=== PATIENT | female | born 1965 | race Caucasian/White ===

== ENCOUNTER 2019-02-15 07:29 | Emergency (ER) | payer BC ==
[2019-02-15] MEDS ORDERED: HYDROCODONE/APAP 10/325 TAB ONE (09:01)
[2019-02-15] MEDS ORDERED: ONDANSETRON 4 MG (ODT) TAB ONE (09:01)
--- NOTE | 2019-02-15 09:01 | ER ---
Nurse's Notes [facility] Name: Luly Rodríguez Age: 53 yrs Sex: Female : 1965 Arrival Date: 02/15/2019 Time: 07:32 Bed 13 Private MD: Altaf Ruiz C Diagnosis: Unspecified sprain of right foot Presentation: 02/15 07:33 Presenting complaint: Patient states: "I tripped and fell yesterday at the graduation aa5 in the parking lot". Pt states "I kind of twisted and landed on my bottom and hurt my right ankle". Denies LOC, denies head injury, pt c/o right ankle pain. 07:33 Transition of care: patient was not received from another setting of care. Onset of aa5 symptoms was February 14, 2019. Risk Assessment: Do you want to hurt yourself or someone else? Patient reports no desire to harm self or others. Initial Sepsis Screen: Does the patient meet any 2 criteria? No. Patient's initial sepsis screen is negative. Does the patient have a suspected source of infection? No. Patient's initial sepsis screen is negative. Care prior to arrival: None. 07:33 Acuity: ARIANA 4 aa5 07:33 Method Of Arrival: Wheelchair aa5 Historical: - Allergies: 07:33 Sulfa (Sulfonamide Antibiotics); aa5 - PMHx: 07:33 Hypertension; Thyroid problem; aa5 - PSHx: 07:33 Appendectomy; aa5 - Immunization history:: Adult Immunizations up to date. - Social history:: Smoking status: Patient uses tobacco products, smokes one pack cigarettes per day. - Ebola Screening: : No symptoms or risks identified at this time. - Family history:: not pertinent. Screenin:41 Abuse screen: Denies threats or abuse. Nutritional screening: No deficits noted. aa5 Tuberculosis screening: No symptoms or risk factors identified. Fall Risk None identified. Assessment: 07:35 General: Appears comfortable, Behavior is calm, cooperative. Pain: Complains of pain in aa5 right ankle Pain does not radiate. Pain currently is 6 out of 10 on a pain scale. Quality of pain is described as aching, throbbing, Pain began "last night" Is continuous. Neuro: Level of Consciousness is awake, alert, obeys commands, Oriented to person, place, time, situation. Cardiovascular: Patient's skin is warm and dry. Respiratory: Airway is patent Respiratory effort is even, unlabored, Respiratory pattern is regular, symmetrical. GI: No signs and/or symptoms were reported involving the gastrointestinal system. : No signs and/or symptoms were reported regarding the genitourinary system. EENT: No signs and/or symptoms were reported regarding the EENT system. Derm: Skin is pink, warm \\T\\ dry. Musculoskeletal: Reports pain in right ankle. 09:00 Reassessment: Patient appears in no apparent distress at this time. Patient and/or em family updated on plan of care and expected duration. Pain level reassessed. Patient is alert, oriented x 3, equal unlabored respirations, skin warm/dry/pink. 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 em Vital Signs: 07:34 BP 127 / 86; Pulse 94; Resp 16 S; Temp 97.9(O); Pulse Ox 98% on R/A; Weight 63.5 kg aa5 (R); Height 5 ft. 7 in. (170.18 cm) (R); Pain 6/10; 09:00 BP 114 / 80; Pulse 89; Resp 18; Pulse Ox 99% on R/A; em 07:34 Body Mass Index 21.93 (63.50 kg, 170.18 cm) aa ED Course: 07:32 Patient arrived in ED. rg4 07:33 Altaf Ruiz MD is Private Physician. rg4 07:33 Arm band placed on Patient placed in an exam room, on a stretcher. aa5 07:33 Patient has correct armband on for positive identification. Bed in low position. Call aa5 light in reach. Side rails up X 1. Adult w/ patient. 07:37 Ngozi Barr, SRINI is Primary Nurse. aa5 07:39 Triage completed. aa5 07:50 Brain Jacobo MD is Attending Physician. avinash 08:02 Ankle Right 3 View XRAY In Process Unspecified. EDMS 08:57 X-ray completed. Portable x-ray completed in exam room. Patient tolerated procedure la2 well. 08:59 Foot Right 3 View XRAY In Process Unspecified. EDMS 09:00 Altaf Ruiz MD is Referral Physician. avinash 09:00 Bradford Jaimes MD is Referral Physician. avinash 09:08 walking boot placed on right foot, ice pack given. em 09:19 No provider procedures requiring assistance completed. Patient did not have IV access em during this emergency room visit. Administered Medications: 08:48 Drug: [place] 10 mg-325 mg 1 tabs Route: PO; em 09:20 Follow up: Response: No adverse reaction em 08:48 Drug: Zofran 4 mg Route: PO; em 09:20 Follow up: Response: No adverse reaction em Outcome: 09:00 Discharge ordered by MD. avinash 09:19 Discharged to home via wheelchair, with family. em 09:19 Condition: good 09:19 Discharge instructions given to patient, family, Instructed on discharge instructions, follow up and referral plans. medication usage, Demonstrated understanding of instructions, follow-up care, medications, Prescriptions given X 2. 09:45 Patient left the ED. em Signatures: Dispatcher [employer] EDBrain Reardon MD MD cha Munoz, Edgar, DOCK PUMPER DOCK PUMPER Ngozi Tuttle, SRINI RN aa5 Suzi Mccloud rg4 Giselle Livingston2
--- NOTE | 2019-02-15 09:01 | EDPHYS ---
Physician Documentation [facility] Name: Luly Rodríguez Age: 53 yrs Sex: Female : 1965 Arrival Date: 02/15/2019 Time: 07:32 Bed 13 Private MD: Atlaf Ruiz C ED Physician Brain Jacobo HPI: 02/15 08:36 This 53 yrs old Female presents to ER via Wheelchair with complaints of Fall avinash Injury. 08:36 Details of fall: The patient fell from an upright position, while standing. Onset: The avinash symptoms/episode began/occurred last night. Associated injuries: The patient sustained dorsum of right foot, decreased range of motion, painful injury, swelling. Historical: - Allergies: 07:33 Sulfa (Sulfonamide Antibiotics); aa5 - PMHx: 07:33 Hypertension; Thyroid problem; aa5 - PSHx: 07:33 Appendectomy; aa5 - Immunization history:: Adult Immunizations up to date. - Social history:: Smoking status: Patient uses tobacco products, smokes one pack cigarettes per day. - Ebola Screening: : No symptoms or risks identified at this time. - Family history:: not pertinent. ROS: 08:36 Constitutional: Negative for fever, chills, and weight loss, Eyes: Negative for injury, avinash pain, redness, and discharge, ENT: Negative for injury, pain, and discharge, Neck: Negative for injury, pain, and swelling, Cardiovascular: Negative for chest pain, palpitations, and edema, Respiratory: Negative for shortness of breath, cough, wheezing, and pleuritic chest pain, Abdomen/GI: Negative for abdominal pain, nausea, vomiting, diarrhea, and constipation, Back: Negative for injury and pain, : Negative for injury, bleeding, discharge, and swelling, Skin: Negative for injury, rash, and discoloration, Neuro: Negative for headache, weakness, numbness, tingling, and seizure, Psych: Negative for depression, anxiety, suicide ideation, homicidal ideation, and hallucinations, Allergy/Immunology: Negative for hives, rash, and allergies, Endocrine: Negative for neck swelling, polydipsia, polyuria, polyphagia, and marked weight changes, Hematologic/Lymphatic: Negative for swollen nodes, abnormal bleeding, and unusual bruising. 08:36 MS/extremity: Positive for decreased range of motion, pain, swelling, tenderness, of the dorsum of right foot. Exam: 08:36 Constitutional: This is a well developed, well nourished patient who is awake, alert, avinash and in no acute distress. Head/Face: Normocephalic, atraumatic. Eyes: Pupils equal round and reactive to light, extra-ocular motions intact. Lids and lashes normal. Conjunctiva and sclera are non-icteric and not injected. Cornea within normal limits. Periorbital areas with no swelling, redness, or edema. ENT: Nares patent. No nasal discharge, no septal abnormalities noted. Tympanic membranes are normal and external auditory canals are clear. Oropharynx with no redness, swelling, or masses, exudates, or evidence of obstruction, uvula midline. Mucous membranes moist. Neck: Trachea midline, no thyromegaly or masses palpated, and no cervical lymphadenopathy. Supple, full range of motion without nuchal rigidity, or vertebral point tenderness. No Meningismus. Chest/axilla: Normal chest wall appearance and motion. Nontender with no deformity. No lesions are appreciated. Cardiovascular: Regular rate and rhythm with a normal S1 and S2. No gallops, murmurs, or rubs. Normal PMI, no JVD. No pulse deficits. Respiratory: Lungs have equal breath sounds bilaterally, clear to auscultation and percussion. No rales, rhonchi or wheezes noted. No increased work of breathing, no retractions or nasal flaring. Abdomen/GI: Soft, non-tender, with normal bowel sounds. No distension or tympany. No guarding or rebound. No evidence of tenderness throughout. Back: No spinal tenderness. No costovertebral tenderness. Full range of motion. Skin: Warm, dry with normal turgor. Normal color with no rashes, no lesions, and no evidence of cellulitis. Neuro: Awake and alert, GCS 15, oriented to person, place, time, and situation. Cranial nerves II-XII grossly intact. Motor strength 5/5 in all extremities. Sensory grossly intact. Cerebellar exam normal. Normal gait. Psych: Awake, alert, with orientation to person, place and time. Behavior, mood, and affect are within normal limits. 08:36 Musculoskeletal/extremity: Extremities: decreased ROM, pain, ROM: full active range of motion, full passive range of motion, Circulation is intact in all extremities. Sensation intact. Compartment Syndrome exam of affected extremity: is normal. DVT Exam: No signs of deep vein thrombosis. negative Homans' sign noted on exam, no appreciated bluish discoloration, no erythema, no increased warmth, pain, swelling, tenderness. Vital Signs: 07:34 BP 127 / 86; Pulse 94; Resp 16 S; Temp 97.9(O); Pulse Ox 98% on R/A; Weight 63.5 kg aa5 (R); Height 5 ft. 7 in. (170.18 cm) (R); Pain 6/10; 09:00 BP 114 / 80; Pulse 89; Resp 18; Pulse Ox 99% on R/A; em 07:34 Body Mass Index 21.93 (63.50 kg, 170.18 cm) [facility] MDM: 07:50 Patient medically screened. [facility] 08:40 Data reviewed: vital signs, nurses notes, radiologic studies, plain films. [facility] 02/15 07:45 Order name: Ankle Right 3 View XRAY [facility] 02/15 08:37 Order name: Foot Right 3 View XRAY [facility] 02/15 08:37 Order name: Ice pack; Complete Time: 08:50 [facility] 02/15 08:37 Order name: Walking boot; Complete Time: 08:50 [facility] Administered Medications: 08:48 Drug: [place] 10 mg-325 mg 1 tabs Route: PO; em 09:20 Follow up: Response: No adverse reaction em 08:48 Drug: Zofran 4 mg Route: PO; em 09:20 Follow up: Response: No adverse reaction em Disposition: 02/15/19 09:00 Discharged to Home. Impression: Unspecified sprain of right foot. - Condition is Stable. - Discharge Instructions: Foot Contusion, Foot Sprain, Foot Contusion, [id number], Foot Pain. - Prescriptions for Tylenol- Codeine #3 300-30 mg Oral Tablet - take 2 tablets by ORAL route every 6 hours As needed; 26 tablet. Motrin IB 200 mg Oral Tablet - take 2 tablet by ORAL route every 6 hours As needed as needed with food; 20 tablet. - Medication Reconciliation Form, Thank You Letter, Antibiotic Education, Prescription Opioid Use form. - Follow up: A Ruiz; When: 2 - 3 days; Reason: Recheck today's complaints, Continuance of care, Re-evaluation by your physician. Follow up: Bradford Jaimes; When: 2 - 3 days; Reason: Recheck today's complaints, Re-evaluation by your physician. - Problem is new. - Symptoms have improved. Signatures: Dispatcher [employer] Brain Bello MD MD cha Munoz, Himanshu, ROSE GROWER ROSE GROWER Ngozi Tuttle, RN RN aa5 Corrections: (The following items were deleted from the chart) 09:45 09:00 02/15/2019 09:00 Discharged to Home. Impression: Unspecified sprain of right em foot. Condition is Stable. Discharge Instructions: Foot Contusion, Foot Sprain, Foot Contusion, [id number]-[id number], Foot Pain. Prescriptions for Tylenol-Codeine #3 300-30 mg Oral Tablet - take 2 tablets by ORAL route every 6 hours As needed; 26 tablet, Motrin IB 200 mg Oral Tablet - take 2 tablet by ORAL route every 6 hours As needed as needed with food; 20 tablet. and Forms are Medication Reconciliation Form, Thank You Letter, Antibiotic Education, Prescription Opioid Use. Follow up: Altaf Ruiz; When: 2 - 3 days; Reason: Recheck today's complaints, Continuance of care, Re-evaluation by your physician. Follow up: Bradford Jaimes; When: 2 - 3 days; Reason: Recheck today's complaints, Re-evaluation by your physician. Problem is new. Symptoms have improved. avinash
--- NOTE | 2019-02-15 11:19 | RAD REPORT ---
EXAM DESCRIPTION: RAD - Ankle Right 3 View - 02/15/2019 8:01 am CLINICAL HISTORY: PAIN COMPARISON: None FINDINGS: Right ankle and right foot- multiple projections are submitted There is a subtle area of lucency seen in the calcaneus in the region of the middle subtalar joint. F racture is possible in this region, although this is a somewhat unusual location for a traumatic frac ture. Followup MR imaging of the ankle would be recommended for further assessment.
--- NOTE | 2019-02-18 11:53 | RAD REPORT ---
EXAM DESCRIPTION: RAD - Foot Right 3 View - 02/15/2019 8:58 am CLINICAL HISTORY: PAIN COMPARISON: None FINDINGS: Right ankle and right foot- multiple projections are submitted There is a subtle area of lucency seen in the calcaneus in the region of the middle subtalar joint. F racture is possible in this region, although this is a somewhat unusual location for a traumatic frac ture. Followup MR imaging of the ankle would be recommended for further assessment.
== END 2019-02-15 09:45 | disposition home or self-care (01) ==
LOC: ER 07:29
DX: S93.601A Unspecified sprain of right foot, initial encounter (principal); W18.30XA Fall on same level, unspecified, initial encounter; F17.210 Nicotine dependence, cigarettes, uncomplicated; I10 Essential (primary) hypertension; Z88.2 Allergy status to sulfonamides
CPT/HCPCS: 99284

== ENCOUNTER 2019-10-22 15:53 | Observation (INO) | payer BC ==
[2019-10-22 16:41] VITALS: BMI 22.2
[2019-10-22 17:19] VITALS: O2SAT 99
[2019-10-22] MEDS ORDERED: ASPIRIN EC 81 MG TAB PO ONE (17:25)
[2019-10-22] MEDS ORDERED: ENOXAPARIN 40 MG/0.4 ML SQ ONE (17:25)
[2019-10-22 17:34] LABS: Absolute Lymphocytes (CBC) 1.6 K/uL (0.7-4.9); Basophils % 0.6 % (0-1.3); Hematocrit 43.4 % (36.0-45.0); MPV 8.7 fL (7.6-11.3); RBC Red Blood Cell Count 4.29 M/uL (3.86-4.86)
--- NOTE | 2019-10-22 17:56 | RAD REPORT ---
EXAM DESCRIPTION: RAD - Chest Pa And Lat (2 Views) - 10/22/2019 5:42 pm CLINICAL HISTORY: chest pain Chest pain. COMPARISON: No comparisons FINDINGS: The lungs are clear. The heart is normal in size. No displaced fractures. IMPRESSION: No acute or concerning finding suspected.
[2019-10-22 17:57] LABS: ALT/SGPT 44 U/L (12-78); AST/SGOT 37 U/L (15-37); Albumin 3.6 g/dL (3.4-5.0); Alkaline Phosphatase 48 U/L (45-117); BUN Blood Urea Nitrogen 7 mg/dL (7-18); Bicarbonate 25 mmol/L (21-32); CKMB Creatine Kinase MB < 1.0 ng/mL (0.3-3.6); Creatine Phosphokinase 51 U/L (26-192); Glucose Level 113 mg/dL (74-106); Potassium 3.5 mmol/L (3.5-5.1); Protein, Total 6.7 g/dL (6.4-8.2); Sodium Level 138 mmol/L (136-145); Troponin I < 0.02 ng/mL (0.0-0.045)
[2019-10-22] MEDS ORDERED: AMLODIPINE 5 MG PO SCH (21:00)
[2019-10-22] MEDS ORDERED: POTASSIUM CL SA 10 MEQ TAB PO ONE (21:00)
[2019-10-22] MEDS ORDERED: CIPROFLOXACIN HCL 500 MG PO SCH (21:00)
[2019-10-23 05:26] LABS: Magnesium 1.8 mg/dL (1.8-2.4); Potassium 4.1 mmol/L (3.5-5.1)
[2019-10-23] MEDS ORDERED: LEVOTHYROXINE SODIUM 25 MCG PO SCH (06:00)
[2019-10-23] MEDS ORDERED: MAGNESIUM SULFATE 1 gm IVPB 1 GM/100 ML BAG IV ONE ×2 (06:11→11:00)
[2019-10-23] MEDS ORDERED: REGADENOSON 0.4 MG/5 ML SYR IV ONE (08:11)
[2019-10-23] MEDS ORDERED: BENAZEPRIL HCL 10 MG PO SCH (09:00)
--- NOTE | 2019-10-23 10:02 | RAD REPORT ---
EXAM DESCRIPTION: CT - Chest For Pe Angio - 10/23/2019 12:26 am CLINICAL HISTORY: 54-year-old female rule out pulmonary embolism. The COMPARISON: None. TECHNIQUE: CT angiography of the pulmonary arteries was performed following intravenous administrati on of contrast. Coronal and bilateral oblique maximum intensity projections (MIPS) were created. This exam was performed according to our departmental dose optimization program which includes use of aut omated exposure control, adjustment of the mA and/or kV according to patient size and/or use of itera tive reconstruction technique. FINDINGS: Chest: Evaluation through the lungs reveals no focal opacity, pleural effusion or pneumothorax. There is min imal dependent basilar atelectasis and scarring. The tracheobronchial airways are patent. No signific ant mediastinal or axillary lymphadenopathy by CT measurement criteria. Limited evaluation of the upper abdomen shows no acute intra-abdominal abnormalities. The osseous structures are within normal limits. CT angiography: Diagnostic CT angiography of the pulmonary arteries without intraluminal filling defe ct noted to suggest pulmonary arterial embolus. IMPRESSION: 1. Diagnostic pulmonary angiography without findings to suggest pulmonary arterial embol us. 2. The lungs are clear without focal opacity, pleural effusion or pneumothorax. 3. No specific findings are noted to suggest etiology of the patient's chest pain. Electronically signed by: Morelia Valles MD 10/23/2019 12:37 AM EXECUTIVE VICE PRESIDENT AND CHIEF OPERATING OFFICER Due to temporary technical issues with the PACS/Fluency reporting system, reports are being signed by the in house radiologist as a courtesy to ensure prompt reporting. The interpreting radiologist is f ully responsible for the content of the report.
--- NOTE | 2019-10-23 10:29 | RAD REPORT ---
EXAM DESCRIPTION: NM - Rest Stress Cardiac Imaging - 10/23/2019 10:05 am CLINICAL HISTORY: Chest pain COMPARISON: None. TECHNIQUE: The patient was administered 10.5 mCi of Tc 99m Sestamibi prior to resting SPECT imaging of the heart. The patient was then administered 31.3 mCi of Tc 99m Sestamibi following exercise or ph armacologic stress. Multiplanar SPECT images were reviewed. FINDINGS: The end diastolic volume is 61 ml, the end systolic volume is 14 ml, and the ejection frac tion is 77 %. Physiologic distribution of the radiopharmaceutical through the myocardium is noted. No stress induce d ischemic defect is seen to suggest stress induced ischemia. No fixed defect is seen to suggest hibe rnating myocardium or scarred myocardium. IMPRESSION: No stress induced ischemia or other suspicious findings. Ventricular volumes and ejection fraction are well within normal limits.
[2019-10-23 12:15] VITALS: BP 120/79; TEMP 97.2
--- NOTE | 2019-10-23 13:50 | ECHO ---
HEIGHT: 5 ft 7 in WEIGHT: 142 lb 0 oz DATE OF STUDY: 10/23/[address]: Ronny Ruiz MD 2-DIMENSIONAL: YES M.MODE: YES DOPPLER: YES COLOR FLOW: YES TDS: NO PORTABLE: NO DEFINITY: NO BUBBLE STUDY: NO DIAGNOSIS: CONGESTIVE HEART FAILURE CARDIAC HISTORY: CATHERIZATION: NO SURGERY: NO PROSTHETIC VALVE: NO PACEMAKER: NO MEASUREMENTS (cm) DIASTOLIC (NORMALS) SYSTOLIC (NORMALS) IVSd 0.8 (0.6-1.2) LA Diam 2.3 (1.9-4.0) LVEF 66% LVIDd 3.9 (3.5-5.7) LVIDs 2.5 (2.0-3.5) %FS 36% LVPWd 0.9 (0.6-1.2) Ao Diam 2.5 (2.0-3.7) 2 DIMENSIONAL ASSESSMENT: RIGHT ATRIUM: NORMAL LEFT ATRIUM: NORMAL RIGHT VENTRICLE: NORMAL LEFT VENTRICLE: NORMAL TRICUSPID VALVE: NORMAL MITRAL VALVE: NORMAL PULMONIC VALVE: NORMAL AORTIC VALVE: NORMAL PERICARDIAL EFFUSION: NONE AORTIC ROOT: NORMAL LEFT VENTRICULAR WALL MOTION: NORMAL. DOPPLER/COLOR FLOW: NORMAL. COMMENTS: NORMAL 2D ECHO WITH DOPPLER. NO WALL MOTION ABNORMALITY. NO EFFUSION. TECHNOLOGIST: VICKY GIRALDO
--- NOTE | 2019-10-23 13:59 | TREADPHA ---
DX: CHEST PAIN Date of Study: 10/23/2019 Ht: 5 7 Wt: 142 lb 0 oz Consulting Physician: LYNN MEDICATIONS: AMLODOPINE, THYROID MEDICATION. HISTORY: 54 YEAR OLD FEMALE WITH COMPLAINTS OF LEFT SHOULDER, LEFT CHEST WALL PAIN. DENIED PAIN AT TIME OF TEST. HISTORY OF HYPERTENSION, HYPOTHROIDISM PHYSICIAL EXAMINATION: RESTING B.P.: 141/85 RESTING H.R.: 72 RESTING EKG: SINUS RHYTHM, RIGHTWARD AXIS PROTOCOL: LEXISCAN EXERCISE TIME: 3:30 B.P. AT PEAK STRESS: 122/86 IMPRESSION: LEXISCAN STRESS TEST PERFORMED. CARDIOLITE INJECTED PER PROTOCOL. NO SUPRA VENTRICUAR TACHYCARDIA, NO VENTRICULAR TACHYCARDIA, NO ARRHYTHMIA NOTED. DENIED CHEST PAIN. TOLERATED WELL. PLEASE SEE NUCLEAR MEDICINE REPORT.
--- NOTE | 2019-10-24 05:48 | DS ---
Date of Discharge: 10/23/2019 Disposition: Discharged to go home. Physical Examination: HEENT: Unremarkable. Lungs: Clear to auscultation. Heart: Sounds normal. Abdomen: Soft. Bowel sounds normal. No guarding, rigidity, tenderness, or distention. Extremities: No leg edema. Hospital Course: This is a 54-year-old pleasant female patient, admitted to the hospital with compla ints of chest pain. Please see dictated H and P for more information. After patient was evaluated a t office, she was admitted to the hospital. Due to work schedule, she was not able to get admitted t he day I saw her at the office, but next day she came back and after I talked to her at the office, rosey foster decided to go ahead and admit her to hospital for further evaluation and management of this problem . Patient reported no fall, no injury, no rash in the area of her chest pain. After she was admitte d, NV was ruled out and her blood work was unremarkable. Chest x-ray was unremarkable. CT scan of t he chest was negative for pulmonary embolism and her stress test came back negative for any stress-in duced ischemia and the echocardiogram showed normal ejection fraction of 66%. No pericardial effusio n. I have advised the patient to quit smoking. 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 Patient reported that she is having this pain in the upper back scapular region and lower neck region . She notices more pain with the way she moves her neck or if she leans certain ways. There is no t ingling, numbness of hands. So, I have asked her to use Motrin 200 mg tablet and to take 2 tablets 3 times a day for 5-7 days and if that does not help, she will contact my office. Discharge Medications And Instructions: 1.Continue all prior home medications. 2.Follow up at my office per scheduled appointment. Discharge Diagnoses: 1.Chest pain. 2.Hypertension. 3.Mixed hyperlipidemia. 4.Hypothyroidism. SULY/MODL Voice ID: [id number] Report ID: [id number]
--- NOTE | 2019-10-24 05:54 | HP ---
Date of Admission: 10/22/2019 Chief Complaint: Chest pain. History Of Present Illness: This is a pleasant 54-year-old female patient, who came into office with 4- to 5-day history of chest pain and she describes her chest pain is in the left anterior chest are a radiating to her left side of the neck and left scapula. Pain gets worse when she picks up somethi ng with her left hand, and also with deep breath sometime it gets worse. No shortness of breath. No sweating associated with chest pain. She was also having some burning on urination. She came into office with all these complaints on 10/21/2019, and I recommended her to be admitted to the hospital, but because of her work, she was not able to get admitted, so today she came back to office and arra ngements were made for her to be admitted to the hospital with these ongoing complaints. Allergies: SULFA CAUSING FEVER. Medications: Amlodipine 5 mg daily in the evening. Benazepril 10 mg daily in the morning. Levothyr oxine 25 mcg daily. Review of Systems: Cardiovascular: As mentioned above. Genitourinary: As mentioned above. All other systems reviewed and negative. Past Medical History: Hypothyroidism; hypertension; hyperlipidemia, which is mixed; abnormal liver f unction tests; osteopenia. Past Surgical History: Appendectomy. Family History: Mother due to end-stage liver disease. Brother had testicular cancer. Social History: Positive for smoking. Use of alcohol, 2 glasses of wine daily. Physical Examination: Vital Signs: Height 5 feet 7 inches, weight 142 pounds. Temperature 98.9, pulse 86, respiratory rat e 18, blood pressure 144/81. General: Awake, alert, oriented, not in distress. HEENT: Head atraumatic, normocephalic. Conjunctivae nonerythematous. Sclerae white. Mouth, no thr ush or edema noted. Ears/Nose, no mass, lesion, discharge noted. Neck: Supple. No JVD, lymph nodes, bruit, thyromegaly noted. Lungs: Bilateral good equal air entry. Clear to auscultation. No rhonchi. No rales. Heart: Normal heart sounds, no murmur or gallop. Abdomen: Soft, bowel sounds normal. No guarding, rigidity, tenderness, mass, hepatosplenomegaly, di stention, or bruit noted. Extremities: No leg edema. No calf tenderness. Skin: No rash, ulcer, cellulitis. Lymphatics: No lymph node enlargement in neck, supraclavicular, infraclavicular region. Neuro: No focal neurological deficit. Chest: Unremarkable. External Genitalia: Deferred. Rectal: Deferred. Laboratory Data: EKG: Normal sinus rhythm, normal EKG. Chest x-ray: No acute cardiopulmonary contreras ges. White count 7.8, hemoglobin 15, platelets 182. Sodium 138, potassium 3.5, chloride 105, bicarb 25, BUN 7, creatinine 0.94, glucose 113. Liver function tests unremarkable. Troponin less than 0.0 2. Impression: 1.Chest pain. 2.Hypertension. 3.Mixed hyperlipidemia. 4.Hypothyroidism. 5.Urinary tract infection. Plan: Admit patient to hospital for further evaluation and management of this problem. Patient is a ppropriate for observation status. She was started on oral antibiotics, Cipro, yesterday on outpatie nt basis for urinary tract infection and had abnormal urinalysis done at office with her symptoms of dysuria. We will continue her antibiotics and home medications per order. D-dimer was done and D-di clovis came back elevated at 585. So, CAT scan of the chest per PE protocol was ordered, which came ousmane k negative for any evidence of pulmonary embolism. Plan is to do echocardiogram and stress test alber rrow, and I will see her tomorrow for followup. Details were discussed with patient. SULY/MODL Voice ID: [id number]
== END 2019-10-23 14:06 | disposition home or self-care (01) ==
LOC: 4TH 16:16
PROVIDERS: ADMIT Internal Medicine; ATTEND Internal Medicine
DX: R07.9 Chest pain, unspecified (principal); N39.0 Urinary tract infection, site not specified; I10 Essential (primary) hypertension; E78.2 Mixed hyperlipidemia; E03.9 Hypothyroidism, unspecified; Z88.2 Allergy status to sulfonamides
CPT/HCPCS: 93005; 93017; 93306; 85025; 80048; 36415; 83735; 82550; 85379; 84484; 82553; 80053; 71275; 71046; 78452; Q9967; G0379; J1650; J3475; J2785; A9500; G0378 ×3

== ENCOUNTER 2025-05-09 20:22 | Emergency (ER) | payer OTHER ==
--- OUTSIDE RECORDS SUMMARY | 2025-05-09 20:25 | XMS REPORT | Continuity of Care Document ---
Author Name Unknown Address [address] [facility] [place] [address] Organization [facility] Address [address] [facility] [address] [place] [address] Care Team Providers Care Chief Data Officer Name Role Phone Pcp, Patient Does Not Have A Primary Care Physic jess Michael Barrett Attending Clinician Unavailable Doctor Unassigned, Weiser Attending Clinician [facility] RADIOLOGY Attending Clinician Unavailable Radiology Attending Clinician Unavailable MICHAEL BARRETT Admitting Clinician Unavailable Payers Payer Name Policy Type Policy Number Effective Date Expirati on Date Source [facility] 6 [id number] [facility] Problems Condition Name Condition Details Condition Category Status Onset Date Resolution Date Last Treatment Date Treating Clinician Comments Source 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 05-22 00:00: 00 [facility] Nicotine dependence Nicotine Dependence Problem Active 05-22 00:00: 00 [facility] Atrophic vaginitis Atrophic Vaginitis Problem Active 05-22 00:00: 00 [facility] Skin lesion Skin Lesion Problem Active 05-22 00:00: 00 [facility] Abnormal cervical Papanicola ou smear Abnormal Cervical Papanicola ou Smear Problem Active 05-22 00:00: 00 [facility] Human papillomav irus deoxyribon ucleic acid detected, high risk on cervical specimen Human Papillomav irus Deoxyribon ucleic Acid Detected, High Risk on Cervical Specimen Problem Active 8 00:00: 00 [facility] Hypothyroi dism Hypothyroi dism Problem Active 04-22 00:00: 00 [facility] Essential hypertensi on Essential Hypertensi on Problem Active 04-22 00:00: 00 [facility] [id number] Gross hematuria Problem Active [facility] Allergies, Adverse Reactions, Alerts Allergy Name Allergy Type Status Severity Reaction(s) Onset Date Inactive Date Treating Clinician Comments Source NO KNOWN ALLERGIE S Drug Class Active [facility] SULFA (SULFONA MIDE ANTIBIOT ICS) Allergy to substanc e Active [facility] Social History Social Habit Start Date Stop Date Quantity Comments Source Sexual orientation U [facility] History of Tobacco Use Current Smoker [facility] Exposure to SARS-CoV-2 (event) 2022-11-06 00:00:00 2022-11-16 10:34:00 Not sure [facility] Sex Ass[birth year] At 1965 00:00:00 1965 00:00:00 [facility] Smoking Status Start Date Stop Date Source Heavy Tobacco Smoker [facility] Tobacco smoking consumption unknown [facility] Current Smoker 2020-11-15 00:00:00 [facility] Medications Ordered Medication Name Filled Medication Name Start Date Stop Date Current Medication? Ordering Clinician Indication Dosage Frequency Signature (SIG) Comments Components Source amLODIPine Besylate 5 MG amLODIPine Besylate 5 MG No 1{table t} QD amLODIPine Besylate 5 MG Levothyroxi ne Sodium 25 MCG Levothyroxi ne Sodium 25 MCG No QD Levothyrox ine Sodium 25 MCG Levaquin 250 MG Levaquin 250 MG No 1{table t} QD Levaquin 250 MG Montelukast Sodium 10 MG Montelukast Sodium 10 MG No 1{table t} QD Montelukas t Sodium 10 MG amlodipine 5 mg tablet Take 1 tablet every day by oral route. amlodipine 5 mg tablet Take 1 tablet every day by oral route. No 1 Q1D amlodipine 5 mg tablet Take 1 tablet every day by oral route. [facility] benazepril 10 mg tablet Take 1 tablet every day by oral route. benazepril 10 mg tablet Take 1 tablet every day by oral route. No 1 Q1D benazepril 10 mg tablet Take 1 tablet every day by oral route. [facility] levothyroxi ne 25 mcg capsule Take 1 capsule every day by oral route. levothyroxi ne 25 mcg capsule Take 1 capsule every day by oral route. No 1capsul e(s) Q1D levothyrox ine 25 mcg capsule Take 1 capsule every day by oral route. [facility] loratadine 10 mg capsule Take by oral route. loratadine 10 mg capsule Take by oral route. No loratadine 10 mg capsule Take by oral route. [facility] Low Dose Aspirin 81 mg tablet,anderson yed release Take 1 tablet every day by oral route. Low Dose Aspirin 81 mg tablet,anderson yed release Take 1 tablet every day by oral route. No 1 Q1D Low Dose Aspirin 81 mg tablet,del ayed release Take 1 tablet every day by oral route. [facility] montelukast montelukast No mo ntelukas t [facility] Mucinex Mucinex No Mucinex P [facility] estradiol 0.01% (0.1 mg/gram) vaginal cream Insert 0.5 g 3 times a week by vaginal route at bedtime for 30 days. estradiol 0.01% (0.1 mg/gram) vaginal cream Insert 0.5 g 3 times a week by vaginal route at bedtime for 30 days. No .5g Q56H estradiol 0.01% (0.1 mg/gram) vaginal cream Insert 0.5 g 3 times a week by vaginal route at bedtime for 30 days. [facility] Immunizations Ordered Immunization Name Filled Immunization Name Date Status Comments Source SARS-COV-2 COVID-19 PFIZER VACCINE 2021-01-23 00:00:00 Completed [facility] SARS-COV-2 COVID-19 PFIZER VACCINE 2021-01-02 00:00:00 Completed [facility] SARS-COV-2 COVID-19 PFIZER VACCINE Unknown Completed [facility] Vital Signs Vital Name Observation Time Observation Value Comments S ource Body Weight 2024-05-22 00:00:00 134.2 [lb_av] P [facility] BP Systolic 2024-05-22 00:00:00 117 mm[Hg] [facility] BP Diastolic 2024-05-22 00:00:00 76 mm[Hg] [facility] BMI (Body Mass Index) 2024-05-22 00:00:00 21 kg/m2 [facility] Height 2024-05-22 00:00:00 67 [in_i] [facility] BP Systolic 2024-04-22 00:00:00 120 mm[Hg] [facility] Body Weight 2024-04-22 00:00:00 134.2 [lb_av] [facility] BP Diastolic 2024-04-22 00:00:00 77 mm[Hg] [facility] BMI (Body Mass Index) 2024-04-22 00:00:00 [facility] 2024-04-22 00:00:00 67 [in_i] [facility] Procedures Procedure Date / Time Performed Performing Clinician Source AUTHORIZATION FOR RELEASE OF PHI 2023-06-02 05:01:00 Doctor Unassigned, Weiser [facility] XR CHEST 2 VW 2022-11-16 16:57:10 Requisition, Paper [facility] Encounters Start Date/Time End Date/Time Encounter Type Admission Type Attending Clinicians Care Facility Care Department Encounter ID Source 2021-10-19 12:11:00 Outpatient Michael Barrett [facility] [id number] [facility] 2021-10-19 12:10:37 Outpatient [facility] [id number] [facility] 2021-10-19 12:10:18 Outpatient [facility] [id number] [facility] 2024-06-03 00:00:00 2024-06-03 00:00:00 CORINNE Strickland: [address], [facility] [address], [place] [address] , Ph. [facility]ly [facility] - GC_GCBZW_La asad Deshpande* [id number] [facility] 2024-05-22 00:00:00 2024-05-22 00:00:00 Arin Bass, [place]: [address], [place] [address] , Ph. [facility] - GC_GCBZW_Katie Deshpande* [id number] [facility] 2024-04-22 00:00:00 2024-04-22 00:00:00 Rae Brito PA: [address], [place] [address] , Ph. [facility] - GC_GCBZW_Katie Deshpande* [id number] [facility] 2023-06-02 00:00:00 2023-06-02 00:00:00 Orders Only Doctor Unassigned, Weiser [facility] [id number] [facility] 2022-12-14 00:00:00 2022-12-14 00:00:00 Outpatient R RADIOLOGY [facility] [id number] [facility] 2022-11-22 00:00:00 2022-11-22 00:00:00 Outpatient R RADIOLOGY [facility] [id number] [facility] 2022-11-16 10:36:16 2022-11-16 23:59:00 Outpatient R RADIOLOGY [facility] [id number] [facility] 2022-11-16 10:30:00 2022-11-16 23:59:00 Hospital Encounter Radiology [facility] [id number] [facility] 2021-08-15 00:00:00 2021-08-15 00:00:00 (TEL) STLMLC STLMLC [id number] [facility] 2020-11-15 00:00:00 2020-11-15 00:00:00 Outpatient STLMLC STLMLC [id number] [facility] 2020-09-17 00:00:00 2020-09-17 00:00:00 Outpatient STLMLC STLMLC [id number] [facility] 2020-09-13 00:00:00 2020-09-13 00:00:00 Outpatient STLMLC STLMLC [id number] [facility] 2020-09-07 00:00:00 2020-09-07 00:00:00 Outpatient STLMLC STLMLC [id number] [facility] 2020-08-26 00:00:00 2020-08-26 00:00:00 Outpatient STLMLC STLMLC [id number] [facility] Results Test Description Test Time Test Comments Results Result Comments Source Tissue Pathology biopsy report 00:00:00 Clinical InformationPathologistA SourceA Gross DescriptionA Micro DescriptionA Diagnosis [facility]
[2025-05-09] MEDS ORDERED: KETOROLAC 30 MG/ML INJ ONE (21:10)
[2025-05-09] MEDS ORDERED: NA CHLORIDE 0.9% 1,000 ML ONE (21:10)
[2025-05-09] MEDS ORDERED: DIAZEPAM 10 MG/2 ML INJ SYRINGE ONE (21:10)
[2025-05-09 21:13] LABS: Absolute Lymphocytes (CBC) 1.7 K/uL (0.7-4.9); Hematocrit 40.2 % (36.0-45.0); Hemoglobin 13.9 g/dL (12.0-15.0); MCH 36.2 pg (27.0-35.0); MCHC 34.5 g/dL (32.0-36.0); MCV 104.8 fL (80-100); MPV 8.8 fL (7.6-11.3); Nucleated RBC Absolute Count 0.0 (0-0); Nucleated Red Blood Cells % 0.0 % (0-0); RBC Red Blood Cell Count 3.84 M/uL (3.86-4.86); White Blood Count 7.20 thou/uL (4.3-10.9)
[2025-05-09 21:22] LABS: PT Prothrombin Time 14.3 SECONDS (10-13.0); Protime INR 1.27
[2025-05-09 21:32] LABS: ALT/SGPT 30 U/L (13-56); AST/SGOT 33 U/L (15-37); Albumin 3.2 g/dL (3.4-5.0); Albumin/Globulin Ratio 0.7 (1.1-1.8); Alkaline Phosphatase 91 U/L (45-117); Anion Gap 12.2 mEq/L (5.0-15.0); BUN Blood Urea Nitrogen 11 mg/dL (7-18); Bilirubin Indirect, Calculated 0.5 mg/dL (0.2-0.8); Globulin 4.5 g/dL (2.3-3.5); Glucose Level 97 mg/dL (74-106); Magnesium 1.5 mg/dL (1.6-2.4); Potassium 3.2 mEq/L (3.5-5.1)
[2025-05-09 21:33] LABS: Troponin High Sensitivity < 3.0 pg/mL (<58.9)
--- NOTE | 2025-05-09 22:16 | RAD REPORT ---
Procedure: Chest Single View HISTORY: Chest and back pain COMPARISON: 2019 FINDINGS: The lungs appear clear of acute infiltrate. No significant pleural effusion noted. The heart is normal size. IMPRESSION: No acute abnormality is displayed.
[2025-05-09] MEDS ORDERED: POTASSIUM 25 MEQ EFFERV TAB ONE (22:30)
[2025-05-09] MEDS ORDERED: MAGNESIUM OXIDE 400 MG TAB ONE (22:30)
--- NOTE | 2025-05-09 22:39 | ER ---
Nurse's Notes [facility] Name: Luly Rodríguez Age: 60 yrs Sex: Female : 1965 Arrival Date: 05/09/2025 Time: 20:22 Bed 13 Private MD: Diagnosis: Insomnia;Dorsalgia, unspecified;Cervicalgia Presentation: 05/09 20:31 Chief complaint: Patient states: SHE WOKE UP SUNDAY NIGHT WITH PAIN IN THE LT SHOULDER dd2 THAT RADIATING DOWN LT ARM. SUNDAY AND SUNDAY PAIN WENT TO THE RT COLLAR BONE DOWN RT ARM AND AROUND NECK. PT REPORTS FEELING STIFF, UNABLE TO SLEEP AND DECREASED APPETITE DUE TO THE PAIN. Coronavirus screen: At this time, the client does not indicate any symptoms associated with coronavirus-19. Ebola Screen: No symptoms or risks identified at this time. Initial Sepsis Screen: Does the patient meet any 2 criteria? No. Patient's initial sepsis screen is negative. Does the patient have a suspected source of infection? No. Patient's initial sepsis screen is negative. Risk Assessment: Do you want to hurt yourself or someone else? Patient reports no desire to harm self or others. Onset of symptoms was May 04, 2025. 20:31 Method Of Arrival: Ambulatory dd2 20:31 Acuity: ARIANA 3 dd2 Triage Assessment: 20:35 General: Appears in no apparent distress. uncomfortable, Behavior is cooperative, dd2 appropriate for age, anxious. Pain: Complains of pain in right clavicle, left clavicle, anterior aspect of right shoulder, anterior aspect of left shoulder and neck. Musculoskeletal: Circulation, motion, and sensation intact. Range of motion: intact in all extremities. Historical: - Allergies: 20:35 Sulfa (Sulfonamide Antibiotics); dd2 - PMHx: 20:35 Hypertension; Thyroid problem; Depressive disorder; dd2 - PSHx: 20:35 Appendectomy; dd2 - Immunization history:: Adult Immunizations up to date. - Infectious Disease History:: Denies. - Social history:: Smoking status: Patient reports the use of cigarette tobacco products, denies chronic smoking, but will smoke occasionally. Screenin:47 [facility] ED Fall Risk Assessment (Adult) History of falling in the last 3 months, hm5 including since admission No falls in past 3 months (0 pts) Confusion or Disorientation No (0 pts) Intoxicated or Sedated No (0 pts) Impaired Gait No (0 pts) Mobility Assist Device Used No (0 pt) Altered Elimination No (0 pt) Score/Fall Risk Level 0 - 2 = Low Risk. Abuse screen: Denies threats or abuse. Denies injuries from another. Nutritional screening: No deficits noted. Tuberculosis screening: No symptoms or risk factors identified. Assessment: 21:20 General: Appears well groomed, well developed, well nourished, Behavior is cooperative, hm5 anxious, restless. Pain: Complains of pain in neck and left arm and right arm and chest and anterior aspect of right shoulder and anterior aspect of left shoulder and left clavicle and right clavicle. Neuro: No deficits noted. Cardiovascular: Reports chest pain, Chest pain. Respiratory: No deficits noted. GI: No deficits noted. No signs and/or symptoms were reported involving the gastrointestinal system. : No deficits noted. No signs and/or symptoms were reported regarding the genitourinary system. EENT: No deficits noted. No signs and/or symptoms were reported regarding the EENT system. Derm: No deficits noted. No signs and/or symptoms reported regarding the dermatologic system. Musculoskeletal: Reports pain in neck and left arm and right arm and chest and anterior aspect of right shoulder and anterior aspect of left shoulder and left clavicle and right clavicle. Vital Signs: 20:31 BP 157 / 93; Pulse 86; Resp 16; Temp 97.9; Pulse Ox 100% ; Weight 67.13 kg; Height 5 dd2 ft. 7 in. ; Pain 2/10; 21:52 BP 146 / 90; Pulse 79; Resp 17; Pulse Ox 97% on R/A; hm5 22:30 BP 140 / 82; Pulse 80; Resp 18; Pulse Ox 100% on R/A; hm5 20:31 Body Mass Index 23.18 (67.13 kg, 170.18 cm) dd2 20:31 Pain Scale: Adult dd2 ED Course: 20:25 Patient arrived in ED. im 20:26 Brain Motta PA is PHCP. cp 20:27 Sharath Meléndez DO is Attending Physician. cp 20:34 Triage completed. dd2 20:35 Arm band placed on right wrist. dd2 20:44 Lesvia Escoto, SRINI is Primary Nurse. hm5 20:47 Patient has correct armband on for positive identification. Bed in low position. Call 5 light in reach. Side rails up X 1. Provided Education on: plan of care. 20:47 No provider procedures requiring assistance completed. hm5 21:10 Inserted saline lock: 20 gauge in left antecubital area, using aseptic technique. Blood hm5 collected. Flushed with 10 mL NS. 22:00 XRAY Chest (1 view) In Process Unspecified. EDMS 23:01 IV discontinued, intact, bleeding controlled, No redness/swelling at site. Pressure hm5 dressing applied. Administered Medications: 21:22 Drug: NS 0.9% IV 1000 ml IV at 1000 ml once; to be given as a bolus over 90 minutes hm5 Route: IV; Rate: 1000 ml; Site: left antecubital; 22:50 Follow up: IV Status: Completed infusion; IV Intake: 1000ml hm5 21:22 Drug: Ketorolac IVP 15 mg IVP once Route: IVP; Site: left antecubital; hm5 21:51 Follow up: Response: Pain is decreased hm5 21:22 Drug: Diazepam IVP 5 mg IVP once Route: IVP; Site: left antecubital; hm5 21:51 Follow up: Response: Pain is decreased; Anxiety decreased hm5 22:36 Drug: Potassium PO Effervescent Tablet 50 mEq PO once; dissolve in 4 ounces of water or hm5 juice Route: PO; 23:02 Follow up: Response: No adverse reaction hm5 22:36 Drug: Magnesium PO 400 mg PO once Route: PO; hm5 23:02 Follow up: Response: No adverse reaction 5 Medication: 20:47 VIS not applicable for this client. hm5 Intake: 22:50 IV: 1000ml; Total: 1000ml. hm5 Outcome: 22:39 Discharge ordered by . jesika 23:01 Discharged to home ambulatory, with significant other, 5 23:01 Condition: stable 23:01 Discharge instructions given to patient, significant other, Instructed on discharge instructions, follow up and referral plans. no drinking with medication, no driving heavy equipment, medication usage, Demonstrated understanding of instructions, follow-up care, medications, Prescriptions given X 2, 23:02 Patient left the ED. 5 Signatures: Dispatcher [facility] EDIA Brain Motta PA-C PA-C cp Mendoza, Itzel im ESTRELLA, MAK, RN RN dd2 Lesvia Escoto, RN RN hm5
--- NOTE | 2025-05-09 22:39 | EDPHYS ---
Physician Documentation [facility] Name: Luly Rodríguez Age: 60 yrs Sex: Female : 1965 Arrival Date: 05/09/2025 Time: 20:22 Bed 13 Private MD: ED Physician Sharath Meléndez HPI: 05/09 20:55 This 60 yrs old Female presents to ER via Ambulatory with complaints of Chest XRAY. cp 20:55 The patient presents with pain that is acute, with no known mechanism of injury. cp 20:55 The symptoms are located in the upper back and shoulders. cp 20:55 Onset: The symptoms/episode began/occurred 5 day(s) ago. The pain radiates to the right cp arm and left arm. 20:55 Associated signs and symptoms: Pertinent positives: difficulty sleeping, Pertinent cp negatives: abdominal pain, chest pain, fever, numbness, weakness. Historical: - Allergies: 20:35 Sulfa (Sulfonamide Antibiotics); dd2 - PMHx: 20:35 Hypertension; Thyroid problem; Depressive disorder; dd2 - PSHx: 20:35 Appendectomy; dd2 - Immunization history:: Adult Immunizations up to date. - Infectious Disease History:: Denies. - Social history:: Smoking status: Patient reports the use of cigarette tobacco products, denies chronic smoking, but will smoke occasionally. ROS: 21:00 Constitutional: Negative for fever, poor PO intake, cp 21:00 Cardiovascular: Negative for chest pain, edema, palpitations, cp 21:00 Respiratory: Negative for cough, shortness of breath, wheezing, 21:00 Abdomen/GI: Negative for abdominal pain, vomiting, diarrhea, constipation, 21:00 Eyes: Negative for injury, pain, redness, and discharge, cp 21:00 ENT: Negative for drainage from ear(s), ear pain, sore throat, difficulty swallowing, difficulty handling secretions, 21:00 Back: Positive for pain at rest, pain with movement, of the left trapezius, right trapezius, left scapular area and right scapular area, Negative for injury or acute deformity, 21:00 Neuro: Negative for altered mental status, dizziness, headache, weakness, 21:00 Psych: Positive for insomnia, 21:00 All other systems are negative, Exam: 21:05 Constitutional: The patient appears in no acute distress, alert, awake, cp non-diaphoretic, non-toxic, well developed, well nourished, 21:05 Head/Face: Normocephalic, atraumatic. cp 21:05 Eyes: Periorbital structures: appear normal, Conjunctiva: normal, no exudate, no injection, Sclera: no appreciated abnormality, Lids and lashes: appear normal, bilaterally, 21:05 ENT: External ear(s): are unremarkable, Nose: is normal, Mouth: Lips: moist, Oral mucosa: moist, Posterior pharynx: Airway: no evidence of obstruction, patent, 21:05 Neck: ROM/movement: is normal, is supple, no meningismus, no nuchal rigidity, 21:05 Chest/axilla: Inspection: normal, 21:05 Cardiovascular: Rate: normal, Rhythm: regular, Edema: is not appreciated, JVD: is not appreciated, 21:05 Respiratory: the patient does not display signs of respiratory distress, Respirations: normal, no use of accessory muscles, no retractions, labored breathing, is not present, Breath sounds: are clear throughout, no decreased breath sounds, no stridor, no wheezing, 21:05 Abdomen/GI: Inspection: abdomen appears normal, Palpation: abdomen is soft and non-tender, in all quadrants, 21:05 Back: pain, that is mild, of the left trapezius, right trapezius, left scapular area and right scapular area, ROM is normal, 21:05 Skin: cellulitis, is not appreciated, no rash present. 21:05 Neuro: Orientation: to person, place \T\ time. Mentation: is normal, Motor: moves all fours, strength is normal, Sensation: is normal, 21:05 Psych: Behavior/mood is cooperative, Judgement / Insight is normal. Delusions/hallucinations are not present. 21:07 ECG was reviewed by the Attending Physician. cp Vital Signs: 20:31 BP 157 / 93; Pulse 86; Resp 16; Temp 97.9; Pulse Ox 100% ; Weight 67.13 kg; Height 5 dd2 ft. 7 in. ; Pain 2/10; 21:52 BP 146 / 90; Pulse 79; Resp 17; Pulse Ox 97% on R/A; hm5 22:30 BP 140 / 82; Pulse 80; Resp 18; Pulse Ox 100% on R/A; hm5 20:31 Body Mass Index 23.18 (67.13 kg, 170.18 cm) dd2 20:31 Pain Scale: Adult dd2 MDM: 21:00 Differential diagnosis: Pyelonephritis spinal injury, vertebral fracture, cp musculoskeletal pain, acute psychosis, pneumonia, acute MD. 22:39 Medical Screening Exam initiated 22:39 Data reviewed: vital signs, nurses notes, lab test result(s), EKG, radiologic studies, cp plain films, and as a result, I will discharge patient. 22:39 I considered the following discharge prescriptions or medication management in the emergency department Medications were administered in the Emergency Department. See MAR. Independent interpretation of the following test(s) in the Emergency Department EKG: See my EKG interpretation above. Counseling: I had a detailed discussion with the patient and/or guardian regarding the historical points, exam findings, and any diagnostic results supporting the discharge/admit diagnosis, lab results, radiology results, to return to the emergency department if symptoms worsen or persist or if there are any questions or concerns that arise at home. Response to treatment: the patient's symptoms have markedly improved after treatment, and as a result, I will discharge patient. 05/09 20:52 Order name: Basic Metabolic Panel; Complete Time: 21:36 05/09 21:36 Interpretation: Normal except: NA 133; K 3.2; CL 97. 05/09 20:52 Order name: CBC with Diff; Complete Time: 21:36 05/09 21:37 Interpretation: Normal except: RBC 3.84; MCV 104.8; MCH 36.2; PLT 143. 05/09 20:52 Order name: LFT's; Complete Time: 21:36 05/09 21:37 Interpretation: Normal except: BILID 0.4; ALB 3.2; GLOB 4.5; A/G 0.7. 05/09 20:52 Order name: Magnesium; Complete Time: 21:36 05/09 21:37 Interpretation: Reviewed. 05/09 20:52 Order name: PT-INR; Complete Time: 21:36 05/09 20:52 Order name: Troponin HS; Complete Time: 21:36 05/09 20:52 Order name: XRAY Chest (1 view); Complete Time: 22:22 05/09 20:52 Order name: EKG; Complete Time: 20:53 cp 05/09 20:52 Order name: Cardiac monitoring; Complete Time: 21: cp 05/09 20:52 Order name: EKG - Nurse/Tech; Complete Time: 21: cp 05/09 20:52 Order name: IV Saline Lock; Complete Time: 21:21 cp 05/09 20:52 Order name: Labs collected and sent; Complete Time: 21: cp 05/09 20:52 Order name: O2 Per Protocol; Complete Time: 21: cp 05/09 20:52 Order name: O2 Sat Monitoring; Complete Time: 21:21 cp EC: Rate is 78 beats/min. Rhythm is regular. MA interval is normal. QRS interval is normal. cp QT interval is normal. T waves are Inverted in lead aVR. Interpreted by me. Reviewed by me. Administered Medications: 21:22 Drug: NS 0.9% IV 1000 ml IV at 1000 ml once; to be given as a bolus over 90 minutes 5 Route: IV; Rate: 1000 ml; Site: left antecubital; 22:50 Follow up: IV Status: Completed infusion; IV Intake: 1000ml [facility] 21:22 Drug: Ketorolac IVP 15 mg IVP once Route: IVP; Site: left antecubital; 5 21:51 Follow up: Response: Pain is decreased 5 21:22 Drug: Diazepam IVP 5 mg IVP once Route: IVP; Site: left antecubital; 5 21:51 Follow up: Response: Pain is decreased; Anxiety decreased 5 22:36 Drug: Potassium PO Effervescent Tablet 50 mEq PO once; dissolve in 4 ounces of water or hm5 juice Route: PO; 23:02 Follow up: Response: No adverse reaction 5 22:36 Drug: Magnesium PO 400 mg PO once Route: PO; 5 23:02 Follow up: Response: No adverse reaction [facility] Disposition: 05/10 00:15 I was immediately available on-site in the Emergency Department for consultation in the ma3 care of the patient. Disposition Summary: 05/09/25 22:39 Discharge Ordered Notes: Location: Home cp Problem: new cp Symptoms: have improved cp Condition: Stable cp Diagnosis - Insomnia cp - Dorsalgia, unspecified cp - Cervicalgia cp Followup: cp - With: Private Physician - When: 2 - 3 days - Reason: Worsening of condition Discharge Instructions: - Discharge Summary Sheet cp - Acute Back Pain, Adult cp - Insomnia cp - Musculoskeletal Pain cp - Heat Therapy cp - Neck Exercises cp - Back Exercises cp Forms: - Medication Reconciliation Form cp - Antibiotic Education cp - Prescription Opioid Use cp - Patient Portal Instructions cp - Leadership Thank You Letter cp Prescriptions: - diclofenac potassium 50 mg Oral tablet - take 1 tablet ORAL route 2 times per day as needed for pain; 20 tablet; cp Refills: 0, Product Selection Permitted - methocarbamol 750 mg Oral tablet - take 1 tablet ORAL route 3 times per day; 30 tablet; Refills: 0, Product cp Selection Permitted Signatures: Dispatcher [employer] EDMS Brain Motta PA-C PA-C cp Sims, Marcus, DO DO ms3 MAK DE LA ROSA RN RN dd2 Lesvia Escoto RN RN hm5 Corrections: (The following items were deleted from the chart) 05/09 20:53 20:53 BASIC METABOLIC PANEL+C.LAB.BRZ ordered. EDMS EDMS 20:53 20:53 CBC+H.LAB.BRZ ordered. EDMS EDMS 20:53 20:53 HEPATIC FUNCTION+C.LAB.BRZ ordered. EDMS EDMS 20:53 20:53 MAGNESIUM+C.LAB.BRZ ordered. EDMS EDMS 20:53 20:53 PROTIME (+INR)+COAG.LAB.BRZ ordered. EDMS EDMS 20:53 20:53 Troponin High Sensitivity+C.LAB.BRZ ordered. EDMS EDMS
[2025-05-10 06:55] VITALS: BP 140/82; O2SAT 100
== END 2025-05-09 23:02 | disposition home or self-care (01) ==
LOC: ER 20:22
DX: G47.00 Insomnia, unspecified (principal); M54.9 Dorsalgia, unspecified; M54.2 Cervicalgia; F17.210 Nicotine dependence, cigarettes, uncomplicated
CPT/HCPCS: 96361; 93005; 85025; 80048; 36415; 83735; 85610; 80076; 84484; 71045; 96375; 96374; 99284; J3360; J7030

== ENCOUNTER 2025-05-10 05:47 | Emergency (ER) | payer OTHER ==
--- OUTSIDE RECORDS SUMMARY | 2025-05-10 05:51 | XMS REPORT | Continuity of Care Document ---
Author Name Unknown Address [address] [facility] [place] [address] Organization [facility] Address [address] [facility] [address] [place] [address] Care Team Providers Care Wood Handler Name Role Phone Pcp, Patient Does Not Have A Primary Care Physic jess Michael Barrett Attending Clinician Unavailable Wendi RN, Giuliana Agosto Attending Clinician Unava ilable Doctor Unassigned, [employer] Attending Clinician [facility] RADIOLOGY Attending Clinician Unavailable Radiology Attending Clinician Unavailable MICHAEL BARRETT Admitting Clinician Unavailable Payers Payer Name Policy Type Policy Number Effective Date Expirati on Date Source [facility] 6 [id number] [facility] Problems Condition Name Condition Details Condition [...] High Risk on Cervical Specimen Problem Active 8- 00:00: 00 [facility] Hypothyroi dism Hypothyroi dism Problem Active 04-22 00:00: 00 [facility] Essential hypertensi on Essential Hypertensi on Problem Active 04-22 00:00: 00 [facility] [id number] Gross hematuria Problem Active [facility] Allergies, Adverse Reactions, Alerts Allergy Name Allergy Type Status Severity Reaction(s) Onset Date Inactive Date Treating Clinician Comments Source SULFA (SULFONA MIDE ANTIBIOT ICS) Allergy to substanc e Active [facility] NO KNOWN ALLERGIE S Drug Class Active [facility] Social History Social Habit Start Date Stop Date Quantity Comments Source ASSERTION Possible [facility] History of Tobacco Use Current Smoker [facility] Sexual orientation [facility] Exposure to SARS-CoV-2 (event) 2022-11-06 00:00:00 2022-11-16 10:34:00 Not sure [facility] Sex assigned at 1965 00:00:00 1965 00:00:00 [facility] Smoking Status Start Date Stop Date Source Tobacco smoking consumption unknown [facility] Heavy Tobacco Smoker [facility] Current Smoker 2020-11-15 00:00:00 [facility] Medications Ordered Medication Name Filled Medication Name [...] 1 tablet every day by oral route. [facility] benazepril 10 mg tablet Take 1 tablet every day by oral route. benazepril 10 mg tablet Take 1 tablet every day by oral route. No 1 Q1D benazepril 10 mg tablet Take 1 tablet every day by oral route. [facility] levothyroxi ne 25 mcg capsule Take 1 capsule every day by oral route. levothyroxi ne 25 mcg capsule Take 1 capsule every day by oral route. No 1capsul e(s) Q1D levothyrox ine 25 mcg capsule Take 1 capsule every day by oral route. [facility] loratadine 10 mg capsule Take by oral route. loratadine 10 mg capsule Take by oral route. No loratadine 10 mg capsule Take by oral route. [facility] Low Dose Aspirin 81 mg tablet,anderson yed release Take 1 tablet every day by oral route. Low Dose Aspirin 81 mg tablet,anderson yed release Take 1 tablet every day by oral route. No 1 Q1D Low Dose Aspirin 81 mg tablet,del ayed release Take 1 tablet every day by oral route. [facility] montelukast montelukast No mo ntelukas t [facility] Mucinex Mucinex No Mucinex [facility] estradiol 0.01% (0.1 mg/gram) vaginal cream Insert [...] vaginal route at bedtime for 30 days. [facility] Immunizations Ordered Immunization Name Filled Immunization Name Date Status Comments Source SARS-COV-2 COVID-19 PFIZER VACCINE 2021-01-23 00:00:00 Completed [facility] SARS-COV-2 COVID-19 PFIZER VACCINE 2021-01-23 00:00:00 Completed [facility] SARS-COV-2 COVID-19 PFIZER VACCINE 2021-01-02 00:00:00 Completed [facility] SARS-COV-2 COVID-19 PFIZER VACCINE 2021-01-02 00:00:00 Completed [facility] SARS-COV-2 COVID-19 PFIZER VACCINE Unknown Completed [facility] Vital Signs Vital Name Observation Time Observation Value Comments S ource Body Weight 2024-05-22 00:00:00 134.2 [lb_av] [facility] BP Systolic 2024-05-22 00:00:00 117 mm[Hg] [...] (Body Mass Index) 2024-04-22 00:00:00 21 kg/m2 [facility] Height 2024-04-22 00:00:00 67 [in_i] [facility] Procedures Procedure Date / Time Performed Performing Clinician Source AUTHORIZATION FOR RELEASE OF PHI 2023-06-02 05:01:00 Doctor Unassigned, [employer] [facility] XR CHEST 2 VW 2022-11-16 16:57:10 Requisition, Paper [facility] Encounters Start Date/Time End Date/Time Encounter Type Admission Type Attending Clinicians Care Facility Care Department Encounter ID Source 2021-10-19 12:11:00 Outpatient Michael Barrett [facility] [id number] [facility] 2021-10-19 12:10:37 Outpatient [facility] [id number] [facility] 2021-10-19 12:10:18 Outpatient [facility] [id number] [facility] 2025-05-09 00:00:00 2025-05-09 20:04:20 Nurse Triage Giuliana Adame Rebecca L [facility] [id number] [facility] 2024-06-03 00:00:00 2024-06-03 00:00:00 CORINNE Strickland: [address], [place] [phone] , Ph. [facility] - GC_GCBZW_Katie asad Deshpande* [id number] [facility] 2024-05-22 00:00:00 2024-05-22 00:00:00 MAXIMILIANO TeranP: [address], [address], [place] [phone] , Ph. [facility] - GC_GCBZW_Katie Deshpande* [id number] [facility] 2024-04-22 00:00:00 2024-04-22 00:00:00 CORINNE Strickland: [address], [address], [place] [phone] , Ph. [facility] GC_GCBZW_Katie asad Jeramy* [id number] [facility] 2023-06-02 00:00:00 2023-06-02 00:00:00 Orders Only Doctor Unassigned, [employer] [facility] [id number] [facility] 2022-12-14 00:00:00 2022-12-14 00:00:00 Outpatient R RADIOLOGY [facility] [id number] [facility] 2022-11-22 00:00:00 2022-11-22 00:00:00 Outpatient R RADIOLOGY [facility] [id number] [facility] 2022-11-16 10:36:16 2022-11-16 23:59:00 Outpatient R RADIOLOGY [facility] [id number] [facility] 2022-11-16 10:30:00 2022-11-16 23:59:00 Hospital Encounter Radiology [facility] [id number] [facility] ity [facility] 2021-08-15 00:00:00 2021-08-15 00:00:00 (TEL) STLMLC STLMLC [id number] [facility] 2020-11-15 00:00:00 2020-11-15 00:00:00 Outpatient STLMLC ST[facility]C [id number] [facility] 2020-09-17 00:00:00 2020-09-17 00:00:00 Outpatient STLMLC STLMLC [id number] [facility] 2020-09-13 00:00:00 2020-09-13 00:00:00 Outpatient STLMLC STLMLC [id number] [facility] 2020-09-07 00:00:00 2020-09-07 00:00:00 Outpatient STLMLC STLMLC [id number] [facility] 2020-08-26 00:00:00 2020-08-26 00:00:00 Outpatient STLMLC STLMLC [id number] [facility] Results Test Description Test Time Test Comments Results Result Comments Source Tissue Pathology biopsy report 00:00:00 Clinical InformationPathologistA SourceA Gross DescriptionA Micro DescriptionA Diagnosis [facility] Medical Notes Date/Time Note Provider Source 2025-05-09 19:21:00 Regarding: pain under collarbones ----- Message from Patient Cane Burner sent at 05/09/2025 7:19 PM CDT ----- Patient complaining of pain in the collarbones, shoulders, back pain, neck pain, pain in the upper chest under the collarbones, denies shortness of breath or resp distress, states the pain comes and goes. [facility] 2025-05-09 19:21:00 Adult Triage Assessment Last Clinic Visit: 11/17/22 radiology, imaging Primary Symptom: collarbone pain Onset / Duration: since sunday Location / Description: waking up in writhing pain, left shoulder pain that increased with movement, felt like a pinched nerve, Sunday pain was across chest and collarbones and right arm and down left arm, sunday around neck that increased with turning head, neck pain and stiffness. Pain is now intermittent, Screaming in pain at times, lower back pain, decreased appetite, nausea Pain / Severity: severe, does not give pain rating, screaming in pain at times Associated Symptoms: no difficulty breathing, legs have been shaky and weak Fever / Method: denies Hydration: drinking fluids well, urinating well Treatment so far: heat pack to the neck Effect on ADL's: moderate LMP: n/a Pre-existing condition / Immunocompromised: none in chart Alli Rodríguez is a 60 year old female calling for concern of pain to shoulders, arms, neck and collarbone areas since Sunday. Patient given care advice to go to ED for evaluation and treatment, Patient reports her will drive her to the ER. All questions answered and call back instructions provided and patient voiced understanding. Reason for Disposition SEVERE chest pain Protocols used: Chest [id number] [facility]
[2025-05-10] MEDS ORDERED: DIAZEPAM 5 MG TABLET ONE (06:23)
--- NOTE | 2025-05-10 07:21 | ER ---
Nurse's Notes [facility] Name: Luly Rodríguez Age: 60 yrs Sex: Female : 1965 Arrival Date: 05/10/2025 Time: 05:47 Bed 20 Private MD: Altaf Ruiz C Diagnosis: Pain in left shoulder Presentation: 05/10 05:59 Chief complaint: Patient states: "I was here yesterday for this pain in my right lower zm back and left shoulder, i haven't been able to fill my RX and I was having pain again". Coronavirus screen: Vaccine status: Patient reports receiving the 2nd dose of the covid vaccine. Patient reports receiving the 1st dose of the Covid vaccine. Client denies travel out of the [place] in the last 14 days. At this time, the client does not indicate any symptoms associated with coronavirus-19. Ebola Screen: Patient denies travel to an Ebola-affected area in the 21 days before illness onset. No symptoms or risks identified at this time. Initial Sepsis Screen: Does the patient meet any 2 criteria? No. Patient's initial sepsis screen is negative. Does the patient have a suspected source of infection? No. Patient's initial sepsis screen is negative. Risk Assessment: Do you want to hurt yourself or someone else? Patient reports no desire to harm self or others. Onset of symptoms was May 10, 2025 at 05:00. 05:59 Method Of Arrival: Ambulatory 05:59 Acuity: ARIANA 4 zm Triage Assessment: 06:03 General: Appears in no apparent distress. uncomfortable, Behavior is calm, cooperative, zm appropriate for age. Pain: Complains of pain in left scapular area and right low back Pain currently is 8 out of 10 on a pain scale. Pain began 1 hour ago. Is continuous. Neuro: No deficits noted. Level of Consciousness is awake, alert, obeys commands, Oriented to person, place, time, situation. Cardiovascular: No deficits noted. Denies chest pain, Capillary refill < 3 seconds in bilateral fingers Patient's skin is warm and dry. Respiratory: No deficits noted. Airway is patent Respiratory effort is even, unlabored, Respiratory pattern is regular, symmetrical. Historical: - Allergies: 06:03 Sulfa (Sulfonamide Antibiotics); zm - PMHx: 06:03 depressive disorder; Hypertension; Thyroid problem; zm - PSHx: 06:03 Appendectomy; zm - Immunization history:: Adult Immunizations up to date. - Infectious Disease History:: Denies. - Social history:: Smoking status: Patient reports the use of cigarette tobacco products, smokes one-half pack cigarettes per day. Screenin:08 [facility] ED Fall Risk Assessment (Adult) History of falling in the last 3 months, zm including since admission No falls in past 3 months (0 pts) Confusion or Disorientation No (0 pts) Intoxicated or Sedated No (0 pts) Impaired Gait No (0 pts) Mobility Assist Device Used No (0 pt) Altered Elimination No (0 pt) Score/Fall Risk Level 0 - 2 = Low Risk Oriented to surroundings, Maintained a safe environment, Educated pt \\T\\ family on fall prevention, incl call for assistance when getting out of bed, Assessed \\T\\ reinforced patient's understanding of fall precautions, Hourly rounding (assess needs \\T\\ fall precautionary measures) done, Used ambulatory aids as needed (educated on \\T\\ assisted with), Used gait belt as appropriate. 06:08 Abuse screen: Denies threats or abuse. Nutritional screening: No deficits noted. zm Tuberculosis screening: No symptoms or risk factors identified. Assessment: 07:34 General: Appears in no apparent distress. comfortable, Behavior is calm, cooperative. iw Pain: Complains of pain in left scapular area Pain. Neuro: Level of Consciousness is awake, alert, obeys commands, Oriented to person, place, time, situation, Moves all extremities. Full function. Vital Signs: 05:59 BP 130 / 83; Pulse 83; Resp 16; Temp 97.2; Pulse Ox 100% on R/A; Weight 67.13 kg; zm Height 5 ft. 7 in. ; Pain 8/10; 07:34 BP 133 / 83; Pulse 71; Resp 16; Pulse Ox 97% on R/A; iw 05:59 Body Mass Index 23.18 (67.13 kg, 170.18 cm) zm 05:59 Pain Scale: Adult zm [place] Coma Score: 06:08 Eye Response: spontaneous(4). Motor Response: obeys commands(6). Verbal Response: zm oriented(5). Total: 15. ED Course: 05:50 Patient arrived in ED. jj6 05:50 Altaf Ruiz MD is Private Physician. jj6 05:51 Teresita Garcia, RN is Primary Nurse. zm 05:56 Sharath Meléndez DO is Attending Physician. ms3 06:03 Triage completed. zm 06:03 Arm band placed on right wrist. zm 06:08 Patient has correct armband on for positive identification. Bed in low position. Call zm light in reach. Side rails up X 1. Adult w/ patient. Client placed on continuous cardiac and pulse oximetry monitoring. NIBP monitoring applied. Pulse ox on. NIBP on. Door closed. Noise minimized. Warm blanket given. Pillow given. Verbal reassurance given. 07:03 Report given to SRINI Perez. zm 07:08 Primary Nurse role handed off by Teresita Garcia RN iw 07:08 Ana Cota RN is Primary Nurse. iw 07:20 Altaf Ruiz MD is Referral Physician. ms3 07:34 Provided Education on: d/c instructions . iw 07:35 No provider procedures requiring assistance completed. Patient did not have IV access iw during this emergency room visit. Administered Medications: 06:25 Drug: Diazepam PO 5 mg PO once Route: PO; zm 06:43 Follow up: Response: No adverse reaction zm Medication: 06:08 VIS not applicable for this client. zm Outcome: 07:21 Discharge ordered by MD. ms3 07:42 Discharged to home ambulatory, with family, iw 07:42 Condition: good 07:42 Discharge instructions given to patient, family, Instructed on discharge instructions, follow up and referral plans. Demonstrated understanding of instructions, follow-up care, 07:43 Patient left the ED. iw Signatures: Ana Cota RN RN iw Sharath Meléndez DO DO ms3 [place] Arin jj6 Teresita Garcia RN RN
--- NOTE | 2025-05-10 07:22 | EDPHYS ---
Physician Documentation [facility] Name: Luly Rodríguez Age: 60 yrs Sex: Female : 1965 Arrival Date: 05/10/2025 Time: 05:47 Bed 20 Private MD: Altaf Ruiz C ED Physician Sharath Meléndez HPI: 05/10 06:18 This 60 yrs old Female presents to ER via Ambulatory with complaints of Shoulder Pain, ms3 Low Back Pain. 06:18 60-year-old female with past medical history of hypertension, hypothyroid presents to [facility] [place] the emergency department for left shoulder pain. Patient states on Sunday she developed left anterior shoulder pain that then traveled around her neck to her right shoulder and now is back in her left shoulder. Patient states the pain feels like spasms and is sharp. Patient states discomfort is currently 3/10. Patient denies fevers, chills.. Historical: - Allergies: 06:03 Sulfa (Sulfonamide Antibiotics); zm - PMHx: 06:03 depressive disorder; Hypertension; Thyroid problem; zm - PSHx: 06:03 Appendectomy; zm - Immunization history:: Adult Immunizations up to date. - Infectious Disease History:: Denies. - Social history:: Smoking status: Patient reports the use of cigarette tobacco products, smokes one-half pack cigarettes per day. ROS: 06:18 Constitutional: Negative for fever, and chills. Cardiovascular: Negative for chest ms3 pain, and palpitations. Respiratory: Negative for shortness of breath, cough, wheezing, and pleuritic chest pain, Abdomen/GI: Negative for abdominal pain, nausea, vomiting, diarrhea, and constipation, 06:18 MS/extremity: Positive for pain, of the left shoulder, Exam: 06:18 Constitutional: This is a well developed, well nourished patient who is awake, alert, ms3 and in no acute distress. Cardiovascular: Regular rate and rhythm with a normal S1 and S2. No gallops, murmurs, or rubs. Normal PMI, no JVD. No pulse deficits. Respiratory: Lungs have equal breath sounds bilaterally, clear to auscultation and percussion. No rales, rhonchi or wheezes noted. No increased work of breathing, no retractions or nasal flaring. Abdomen/GI: Soft, non-tender, with normal bowel sounds. No distension or tympany. No guarding or rebound. No evidence of tenderness throughout. Skin: Warm, dry with normal turgor. Normal color with no rashes, no lesions, and no evidence of cellulitis. 06:18 Musculoskeletal/extremity: Extremities: noted in the left shoulder: pain, There is no evidence of swelling, tenderness, Vital Signs: 05:59 BP 130 / 83; Pulse 83; Resp 16; Temp 97.2; Pulse Ox 100% on R/A; Weight 67.13 kg; zm Height 5 ft. 7 in. ; Pain 8/10; 07:34 BP 133 / 83; Pulse 71; Resp 16; Pulse Ox 97% on R/A; iw 05:59 Body Mass Index 23.18 (67.13 kg, 170.18 cm) zm 05:59 Pain Scale: Adult zm [place] Coma Score: 06:08 Eye Response: spontaneous(4). Motor Response: obeys commands(6). Verbal Response: zm oriented(5). Total: 15. MDM: 06:15 Medical Screening Exam initiated ms3 06:18 Differential diagnosis: tendonitis, muscle spasm. ED course: Labs and imaging from ms3 previous visit on May 09 reviewed. Chest pain workup unremarkable. Patient states she was unable to fill her prescriptions. Will give patient 5 mg p.o. Valium and reassess.. 07:31 Data reviewed: vital signs, nurses notes, and as a result, I will discharge patient. I ms3 considered the following discharge prescriptions or medication management in the emergency department Medications were administered in the Emergency Department. See MAR. Test considered but Not performed: X-ray: Shoulder x-ray and labs considered; however, labs reviewed from May 09 and imaging from May 09 utilized. Counseling: I had a detailed discussion with the patient and/or guardian regarding the historical points, exam findings, and any diagnostic results supporting the discharge/admit diagnosis, the need for outpatient follow up, to return to the emergency department if symptoms worsen or persist or if there are any questions or concerns that arise at home. ED course: On reevaluation patient states her symptoms have improved, patient is alert and oriented x 4, no apparent distress, nontoxic-appearing, speaking full sentences, left arm neurovascularly intact. Patient to follow-up with her primary care physician in 2 to 3 days. All questions were answered. Return precautions discussed include worsening symptoms, or any other concerns.. Administered Medications: 06:25 Drug: Diazepam PO 5 mg PO once Route: PO; zm 06:43 Follow up: Response: No adverse reaction zm Disposition Summary: 05/10/25 07:21 Discharge Ordered Notes: Location: Home ms3 Condition: Stable ms3 Diagnosis - Pain in left shoulder ms3 Followup: ms3 - With: Altaf Ruiz MD - When: 2 - 3 days - Reason: Recheck today's complaints Discharge Instructions: - Discharge Summary Sheet ms3 - Shoulder Pain, [id number] ms3 Forms: - Medication Reconciliation Form ms3 - Antibiotic Education ms3 - Prescription Opioid Use ms3 - Patient Portal Instructions ms3 - Leadership Thank You Letter ms3 Signatures: Sharath Meléndez DO DO ms3 Teresita Garcia, RN RN
[2025-05-10 14:53] VITALS: TEMP 97.2
[2025-05-10 14:55] VITALS: BP 133/83; O2SAT 97
== END 2025-05-10 07:43 | disposition home or self-care (01) ==
LOC: ER 05:47
DX: M25.512 Pain in left shoulder (principal); M54.50 Low back pain, unspecified
CPT/HCPCS: 99283